=== PATIENT | female | born 1995 | race Caucasian/White ===

== ENCOUNTER 2020-12-20 14:00 | Outpatient (CLI) | payer OTHER ==
[2020-12-20 17:36] VITALS: BP 124/72; PULSE 72; RESP 18; TEMP 98
--- NOTE | 2020-12-28 07:56 | P.MSEPDOC ---
Presenting Problems - Arrival Data Date of Arrival on Unit: 12/20/20 Time of Arrival on Unit: 14:00 Mode of Transport: Stretcher - Complaint OB-Reason for Admission/Chief Complaint: Pain Comment: R/O PREG COMPLIICATIONS. C/O PAIN FROM UMBILICUS TO THROAT. Medical History - Information : 1 Para: 0 Term: 0 : 0 Abortions: Spontaneous or Elective: 0 Number of Living Children: 0 - Gestational Age Gestational Age by RA (wks/days): 32 Weeks and 4 Days - History Comment: NONE Review of Systems - Review of Systems Constitutional: No problems Breast: No problems ENT: No problems Cardiovascular: No problems Respiratory: No problems Gastrointestinal: No problems Genitourinary: No problems Musculoskeletal: No problems Neurological: No problems Skin: No problems Vital Signs - Temperature Temperature: 98.0 F Temperature Source: Oral - Pulse Right Brachial Pulse Rate: 72 Pulse Assessment Method: Automatic Cuff - Respirations Respiratory Rate: 18 Oxygen Delivery Method: Room Air O2 Sat by Pulse Oximetry: 100 - Blood Pressure Right Arm Blood Pressure: 124/72 Blood Pressure Mean: 89 Blood Pressure Source: Automatic Cuff Medical Screen Scoring (Pre) - Cervical Exam Dilation: 0 cm = 0 Effacement: More than 50% = 2 Membranes: Intact - Uterine Contractions Frequency: < 36 weeks = 6 Duration: N/A Intensity: N/A - Maternal Vital Signs Maternal Temperature: N/A Maternal Blood Pressure: N/A Signs of Preeclampsia: Headache = 1 Maternal Respirations: N/A - Maternal Trauma Maternal Trauma: N/A - Assessment - Baby A Baseline FHR: 135 Heart Rate - NICHD Category: Category I (Normal) = 0 NST: Reactive Position: N/A Station: N/A - Total Score - Baby A Total Score - Baby A: 9 - Total Score - Baby B Total Score - Baby B: 9 - Total Score - Baby C Total Score - Baby C: 9 - Level of Risk - Baby A Level of Risk - Baby A: Medium (6-9) - Level of Risk - Baby B Level of Risk - Baby B: Medium (6-9) - Level of Risk - Baby C Level of Risk - Baby C: Medium (6-9) Physician Notification (Pre) - Physician Notified Physician Notified Date: 12/20/20 Physician Notified Time: 16:20 New Order Received: Yes - Notification Comment Comment: DISCH HOME. INCREASE FLUIDS. DECREASE ACIDIC FOODS,. PELVIC REST. REST TONIGHT. KEEP SCHED APPT FOR Saturday12/26/20 Disposition - Disposition OB Disposition: Physician follow up in office, Discharge to home Discharge Date: 12/20/20 Discharge Time: 16:50 I agree with the RN Medical Screening Exam: Yes Case reviewed; plan agreed upon as documented in EMR&OBIX.: Yes Comments: Patient was needed see nor examined by me Diagnosis: FALSE LABOR BEFORE 37 COMPLETED WEEKS OF GEST, THIRD TRI
== END 2020-12-20 16:10 | disposition home or self-care (01) ==
LOC: FBPOP 14:00
PROVIDERS: ATTEND Obstetrics & Gynecology
DX: O47.03 False labor before 37 completed weeks of gestation, third trimester (principal); Z3A.32 32 weeks gestation of pregnancy
CPT/HCPCS: 59025; 96360; 96361; 84112; G0463; 96365; 96367; 99213; 99214

== ENCOUNTER 2021-02-15 14:00 | Inpatient (IN) | payer OTHER ==
[2021-02-15] MEDS: miSOPROStoL 25 MCG TAB VAGINAL PRN ×2 (15:23→18:12)
--- NOTE | 2021-02-15 15:39 | P.HPOB ---
History of Present Illness H&P Date: 02/15/21 Chief Complaint: Here for induction for postdates This is a 25-year-old white female 1 para 0 EDC 02/10/2021 at 40-5/7 weeks' gestation. Patient presents with an unfavorable cervix for Cytotec induction. Fetus is been active throughout the . She denies vaginal bleeding or fluid leakage. Past medical history significant for exercise-induced asthma, not symptomatic with . Surgical history significant for oral surgery in the past. Current medications baby aspirin daily, vitamin daily. ALLERGIES none known. Family history significant for diabetes, hypertension, stroke, cardiomegaly. Social history patient is single, boyfriend is involved. She works at the [employer]. She denies back oh, alcohol or drug use. history blood type is AB+, rubella status is immune. VDRL testing, urine culture, hepatitis B surface antigen, HIV testing, group B strep cultures all negative. Gonorrhea and chlamydia cultures negative. One-hour Glucola 101. On exam patient is 5 foot 9 inches, 240 pounds, blood pressure 133/75 on admission. There is 2+ peripheral the cervix is posterior, soft, closed, 60-70% effaced, vertex presentation. 25 MCG's of Cytotec is placed posterior to the cervix high in the vaginal vault. heart rate is consistent with reactive NST. Irregular uterine irritability is noted on the monitor. Impression: 40 5/7 weeks intrauterine , here for induction of labor with Cytotec. All signs reassuring. Plan: Continue Cytotec intravaginally every 3 hours for approximately 3 doses, pending clinical progress. Nothing by mouth after midnight. Oxytocin at 0600 hrs. Anticipating normal spontaneous vaginal delivery. Review of Systems Constitutional: Reports as per HPI Past Medical History Past Medical History: Asthma Additional Past Medical History / Comment(s): asthma in childhood, no medications as an adult History of Any Multi-Drug Resistant Organisms: None Reported Additional Past Surgical History / Comment(s): Oral surgery with anesthesia, tolerated well Past Anesthesia/Blood Transfusion Reactions: No Reported Reaction Past Psychological History: No Psychological Hx Reported Smoking Status: Never smoker Past Alcohol Use History: None Reported Past Drug Use History: None Reported - Past Family History Mother Family Medical History: CVA/TIA, Diabetes Mellitus Medications and Allergies Home Medications Medication Instructions Recorded Confirmed Type Aspirin [Adult Low Dose Aspirin EC] 81 mg PO DAILY MDD 81 mg 12/20/20 02/15/21 History Pnv,Calcium 72/Iron/Folic Acid 1 each PO DAILY MDD 1 tab 12/20/20 02/15/21 History [ Plus Tablet] Allergies Allergy/AdvReac Type Severity Reaction Status Date / Time No Known Allergies Allergy Verified 12/20/20 17:21 Exam Vital Signs Temp Pulse Resp BP Pulse Ox 02/15/21 14:10 97.9 F 117 H 18 133/75 98 Intake and Output 02/15/21 02/15/21 02/15/21 06:59 14:59 22:59 Other: Weight 108.862 kg See dictation under HPI please Assessment and Plan Assessment: 40-5/7 weeks intrauterine , here for Cytotec induction. All signs reassuring. Plan: Cytotec 25 MCG's intravaginally every 3 hours times approximately 3 doses pending clinical progress. Nothing by mouth after midnight. Begin oxytocin at 0600 hrs., anticipating normal spontaneous vaginal delivery. Time with Patient: Less than 30
[2021-02-15 15:52] LABS: Basophils % (A) 0 %; Eosinophils # (A) 0.1 k/uL (0-0.7); Eosinophils % (A) 1 %; HCT 39.5 % (34.0-46.0); HGB 13.7 gm/dL (11.4-16.0); Lymphocytes # (A) 1.4 k/uL (1.0-4.8); Lymphocytes % (A) 12 %; MCH 30.5 pg (25.0-35.0); MCHC 34.6 g/dL (31.0-37.0); MCV 88.1 fL (80.0-100.0); Mean Platelet Volume 7.9; Monocytes # (A) 0.5 k/uL (0-1.0); Monocytes % (A) 5 %; Neutrophils # (A) 9.4 k/uL (1.3-7.7); Neutrophils % (A) 81 %; Platelet Count 216 k/uL (150-450); RBC 4.49 m/uL (3.80-5.40); RDW 13.3 % (11.5-15.5); WBC 11.7 k/uL (3.8-10.6)
[2021-02-15] MEDS ORDERED: CARBOPROST TROMETHAMINE 250 MCG/ML 1 ML AMP IM PRN (22:25)
[2021-02-15] MEDS ORDERED: LIDOCAINE 0.5% (PF) 5 MG/ML (50 ML SDV) SQ PRN (22:25)
[2021-02-15] MEDS ORDERED: OXYTOCIN 10 UNIT/ML 1 ML VIAL IM PRN (22:25)
[2021-02-15] MEDS ORDERED: METHYLERGONOVINE 0.2 MG/ML 1 ML AMP IM PRN (22:25)
[2021-02-15] MEDS ORDERED: TERBUTALINE 1 MG/ML VIAL SQ PRN (22:25)
[2021-02-15] MEDS: BUTORPHANOL 1 MG/ML 1 ML VIAL IV PRN (22:32)
[2021-02-15] MEDS: LACTATED RINGERS 1,000 ML IV SCH (22:37)
[2021-02-16] MEDS: BUTORPHANOL 1 MG/ML 1 ML VIAL IV PRN (01:28)
[2021-02-16] MEDS: LACTATED RINGERS 1,000 ML IV SCH ×2 (03:30→06:13)
[2021-02-16] MEDS ORDERED: ROPIVACAINE 100 MG, fentaNYL (PF). 200 MCG in SODIUM CHLORIDE 0.9% 76 ML EPIDURAL ONE (03:30)
[2021-02-16] MEDS ORDERED: OXYTOCIN 30 UNITS/500 ML NS 30 UNIT in SALINE 1 500ML.BAG IV SCH (08:00)
[2021-02-16] MEDS ORDERED: diphenhydrAMINE 50 MG/ML 1 ML VIAL IVP PRN ×2 (12:57)
[2021-02-16] MEDS ORDERED: LANOLIN CREAM 5 GM TUBE TOPICAL PRN (12:57)
[2021-02-16] MEDS ORDERED: SIMETHICONE 80 MG CHEWABLE PO PRN (12:57)
[2021-02-16] MEDS ORDERED: diphenhydrAMINE 25 MG CAP PO PRN (12:57)
[2021-02-16] MEDS ORDERED: diphenhydrAMINE 50 MG CAP PO PRN (12:57)
[2021-02-16] MEDS ORDERED: BENZOCAINE/MENTHOL SPRAY 1 GM/SPRAY AEROSOL TOPICAL PRN (12:57)
[2021-02-16] MEDS ORDERED: diphenhydrAMINE ELIXIR 25 MG/10 ML CUP PO PRN (12:57)
[2021-02-16] MEDS ORDERED: ZOLPIDEM 5 MG TAB PO PRN (12:57)
[2021-02-16] MEDS ORDERED: HYDROCORTISONE 2.5% RECTAL CREAM 30 GM TUBE RECTAL PRN (12:57)
--- NOTE | 2021-02-16 12:57 | P.PROBDLV ---
Vaginal Delivery Note - . Vaginal Delivery Note: This is a 25-year-old white female 1 para 0 EDC 02/10/2021 at 40-5/7 weeks' gestation. Patient presented last night for Cytotec induction for unfavorable cervix and post dates . Group B strep cultures negative. Blood type A+. Rubella status immune. Please see dictated history and physical for details. Cytotec 25 MCG's was placed intravaginally 2. Patient progressed into early labor through the night. Spontaneous amniorrhexis revealed meconium-stained fluid, light period in the morning, oxytocin augmentation was started. After her epidural per were a few episodes of questionable heart rate, this was resolved with oxygen administration, increase fluids, and maternal position changes. Patient became completely dilated and began the second stage of labor at that time. With excellent maternal expulsive efforts the infant's head ultimately crowned on the perineal body. The perineum was prepped and draped in usual sterile fashion. Infant's head delivered occiput anterior and she restituted accordingly. The right or anterior shoulder was gently and easily delivered from underneath the pubic symphysis at which time the oropharynx, nasopharynx, and external nares were all bulb suction. Patient was officially delivered of a liveborn female infant at 1241 hours. Nuchal cord was doubly clamped and ligated, she was handed to waiting marine equipment research engineer in attendance for evaluation where scores of 8 and 9 at one and 5 minutes respectively were given. Placenta delivered spontaneously, it was meconium-stained, otherwise intact with trivascular cord at 1244 hours. Uterus is then massaged. Careful inspection of cervix, vagina, perineum, perirectal, and. Periurethral areas revealed a small first-degree perineal laceration easily repaired with a single qxvcoe-[id number] suture of 3-0 repeat. 's weight 8 lbs. 14 oz. or 4020 g. All sponge needle and enhancement counts are correct. Total estimated blood loss 200 mL's. Patient and her family are allowed to begin the bonding experience in the LDR.
[2021-02-16] MEDS: IBUPROFEN 600 MG TAB PO SCH ×2 (13:49→19:59)
[2021-02-16] MEDS: ACETAMINOPHEN TAB 325 MG TAB PO PRN ×2 (15:12→21:59)
[2021-02-16] MEDS: SENNOSIDES-DOCUSATE SODIUM 1 EACH TAB PO SCH (19:59)
[2021-02-16 20:45] VITALS: RESP 16
[2021-02-17] MEDS: IBUPROFEN 600 MG TAB PO SCH ×2 (03:38→10:16)
[2021-02-17] MEDS: ACETAMINOPHEN TAB 325 MG TAB PO PRN ×3 (03:54→13:39)
--- NOTE | 2021-02-17 08:01 | P.DS ---
Providers Date of admission: 02/15/21 14:00 Expected date of discharge: 02/17/21 Attending physician: Dhara Alejo Primary care physician: Stated None Hospital Course: This is a 25-year-old white female 1 para 0 EDC 02/10/2021 who presented at 40-5/7 weeks for Cytotec induction. was unremarkable, blood type AB+, group B strep cultures negative, rubella status immune. Please see dictated history and physical for details. Patient was admitted, Cytotec 25 MCG's was placed twice intravaginally. She went into labor through the night. Spontaneous amniorrhexis occurred, light meconium-stained fluid. Internal scalp lead was placed and oxytocin titrated. Patient requested an epidural and this gave her excellent relief. She went on to deliver vaginally a liveborn female infant with scores of 8 and 9 at one and 5 minutes respectively. Infant weighed 4020 g or 8 lbs. 14 oz. There was a small first-degree perineal laceration easily repaired, estimated blood loss 200 mL's. Please see dictated delivery note for details. This morning the patient is doing well. She is voiding, ambulating passing flatus without difficulty. Vital signs are stable and she is afebrile. Fundus is firm and in the midline, symmetric and 18 week size. Extremities are negative for edema. is doing well. Patient is judged to be in very good condition for discharge home. She will follow-up in the office with me in 6 weeks. I have reminded her no intercourse, tampons or douching. She will [id number] Advil or Aleve, or Motrin as needed for pain. She will call with any fevers shakes or chills, foul smelling or copious lochia, with the passage of large blood clots, with any pain not alleviated by Motrin products, or indeed with any concerns. Assessment: Doing well day #1 Patient Condition at Discharge: Good Plan - Discharge Summary Discharge Rx Participant: No New Discharge Prescriptions: No Action Pnv,Calcium 72/Iron/Folic Acid [ Plus Tablet] 1 each PO DAILY MDD 1 tab Aspirin [Adult Low Dose Aspirin EC] 81 mg PO DAILY MDD 81 mg Discharge Medication List Aspirin [Adult Low Dose Aspirin EC] 81 mg PO DAILY MDD 81 mg 12/20/20 [History] Pnv,Calcium 72/Iron/Folic Acid [ Plus Tablet] 1 each PO DAILY MDD 1 tab 12/20/20 [History] Follow up Appointment(s)/Referral(s): Dhraa Alejo MD [STAFF PHYSICIAN] - 6 Weeks Discharge Disposition: HOME SELF-CARE
[2021-02-17] MEDS: SENNOSIDES-DOCUSATE SODIUM 1 EACH TAB PO SCH (08:37)
[2021-02-17 11:13] VITALS: BP 99/67; PULSE 91; TEMP 98.3
== END 2021-02-17 15:50 | disposition home or self-care (01) | DRG 807 ==
LOC: 4FBP 14:00
PROVIDERS: ADMIT Obstetrics & Gynecology; ATTEND Obstetrics & Gynecology
PROC: 0HQ9XZZ Repair Perineum Skin, External Approach (ICD-10-PCS; principal; 2021-02-15)
PROC: 00HU33Z Insertion of Infusion Device into Spinal Canal, Percutaneous Approach (ICD-10-PCS; principal; 2021-02-15)
PROC: 10E0XZZ Delivery of Products of Conception, External Approach (ICD-10-PCS; principal; 2021-02-15)
PROC: 3E0R3NZ Introduction of Analgesics, Hypnotics, Sedatives into Spinal Canal, Percutaneous Approach (ICD-10-PCS; principal; 2021-02-15)
DX: O48.0 Post-term pregnancy (principal); Z37.0 Single live birth; O70.0 First degree perineal laceration during delivery; O77.0 Labor and delivery complicated by meconium in amniotic fluid; O99.52 Diseases of the respiratory system complicating childbirth; J45.909 Unspecified asthma, uncomplicated; Z3A.40 40 weeks gestation of pregnancy; Z79.82 Long term (current) use of aspirin; Z82.3 Family history of stroke; Z82.49 Family history of ischemic heart disease and other diseases of the circulatory system; Z83.3 Family history of diabetes mellitus
CPT/HCPCS: 85025; 86850; 86900; 86901

== ENCOUNTER 2023-04-06 12:25 | Outpatient (CLI) | payer OTHER ==
[2023-04-06 13:31] LABS: Appearance,Urine Cloudy (Clear); Bacteria,Urine Moderate /hpf; Bilirubin,Urine Negative (Negative); Blood,Urine Negative (Negative); Color,Urine Yellow; Glucose,Urine (UA) Negative (Negative); Ketones,Urine 1+ (Negative); Leukocyte Esterase,Urine Large (Negative); Mucus,Urine Moderate /hpf; Nitrite,Urine Negative (Negative); PH, Urine 7.5 (5.0-8.0); Protein,Urine 1+ (Negative); RBC,Urine 2 /hpf (0-5); Specific Gravity,Urine 1.031 (1.001-1.035); Squamous Epithelial Cell,Urine 46 /hpf (0-4); Urobilinogen,Urine <2.0 mg/dL (<2.0); WBC,Urine 9 /hpf (0-5)
[2023-04-06 14:26] VITALS: BP 116/62; PULSE 145; RESP 16; TEMP 98.1
--- NOTE | 2023-05-09 19:07 | P.MSEPDOC ---
Presenting Problems - Arrival Data Date of Arrival on Unit: 04/06/23 Time of Arrival on Unit: 12:25 Mode of Transport: Ambulatory - Complaint OB-Reason for Admission/Chief Complaint: Other Comment: Pt presents to [place] with complaints of. abdominal cramping. Pt appears very tearful and. reports feeling "unwell and overwhelmed." Medical History - Information : 2 Para: 1 Term: 1 : 0 Abortions: Spontaneous or Elective: 0 Number of Living Children: 1 - Gestational Age Gestational Age by RA (wks/days): 26 Weeks and 2 Days Review of Systems - Review of Systems Constitutional: No problems Breast: No problems ENT: No problems Cardiovascular: No problems Respiratory: No problems Gastrointestinal: No problems Genitourinary: Increased frequency Musculoskeletal: No problems Neurological: No problems Skin: No problems Vital Signs - Temperature Temperature: 98.1 F Temperature Source: Oral - Pulse Right Brachial Pulse Rate: 145 Pulse Assessment Method: Automatic Cuff - Respirations Respiratory Rate: 16 Oxygen Delivery Method: Room Air - Blood Pressure Right Arm Blood Pressure: 116/62 Blood Pressure Mean: 80 Blood Pressure Source: Automatic Cuff Medical Screen Scoring - Assessment - Baby A Baseline FHR: 130 Heart Rate - NICHD Category: Category I (Normal) NST: Reactive Physician Notification - Physician Notified Physician Notified Date: 04/06/23 Physician Notified Time: 13:46 Physician: Marie Thibodeaux New Order Received: Yes - Notification Comment Comment: Dr. Thibodeaux given report on pt. Pt c/o. VS. readback to Cat 1 FHTs noted. No contractions per. toco. Pt appears very anxious and tearful and reports. little sleep. Pt complaining of urinary symptoms as. well. Orders recieved to send urine for culture. Dr. key [place] to [facility] outpatient pharmacy. To. educate pt she may take OTC stool softeners, and may. take tylenol PM or benadryl to help with sleep. Maternal Triage Index - Non-Urgent/Priority 4 Non-Urgent Priority 4: Yes Criteria Met for Priority 4: Pt presents to [place] with complaints of. abdominal cramping. Pt appears very tearful and. reports feeling "unwell and overwhelmed." Pt reports urinary symptoms. Disposition - Disposition OB Disposition: Discharge to home Discharge Date: 04/06/23 Discharge Time: 14:16 I agree with the RN Medical Screening Exam: Yes Case reviewed; plan agreed upon as documented in EMR&OBIX.: Yes Diagnosis: RELATED CONDITIONS, UNSPECIFIED, SECOND TRIMESTER
== END 2023-04-06 14:16 | disposition home or self-care (01) ==
LOC: FBPOP 12:25
PROVIDERS: ATTEND Obstetrics & Gynecology Obstetrics
DX: O26.892 Other specified pregnancy related conditions, second trimester (principal); Z3A.26 26 weeks gestation of pregnancy
CPT/HCPCS: 81001; 87086; 87077; 87186; G0463; 99213

== ENCOUNTER 2023-07-16 06:00 | Inpatient (IN) | payer OTHER ==
[2023-07-16] MEDS ORDERED: miSOPROStoL 200 MCG TAB PO PRN (06:25)
[2023-07-16] MEDS ORDERED: METHYLERGONOVINE 0.2 MG/ML 1 ML AMP IM PRN (06:25)
[2023-07-16] MEDS ORDERED: CARBOPROST TROMETHAMINE 250 MCG/ML 1 ML AMP IM PRN (06:25)
[2023-07-16] MEDS ORDERED: LIDOCAINE 0.5% (PF) 5 MG/ML (50 ML SDV) SQ PRN (06:25)
[2023-07-16] MEDS ORDERED: TERBUTALINE 1 MG/ML VIAL SQ PRN (06:25)
[2023-07-16] MEDS ORDERED: OXYTOCIN 10 UNIT/ML 1 ML VIAL IM PRN (06:25)
[2023-07-16] MEDS ORDERED: TRANEXAMIC 1,000 MG/100ML-NACL 1,000 MG in EMPTY BAG 1 BAG IV PRN (06:25)
[2023-07-16] MEDS ORDERED: OXYTOCIN 30 UNITS/500 ML NS 30 UNIT in SALINE 1 500ML.BAG IV SCH ×2 (06:30→15:15)
[2023-07-16] MEDS: LACTATED RINGERS 1,000 ML IV SCH ×3 (06:38→14:04)
[2023-07-16 06:39] LABS: Basophils % (A) 0 %; Eosinophils # (A) 0.1 k/uL (0-0.7); Eosinophils % (A) 1 %; HCT 40.1 % (34.0-46.0); HGB 13.7 gm/dL (11.4-16.0); Lymphocytes # (A) 2.3 k/uL (1.0-4.8); Lymphocytes % (A) 18 %; MCH 30.1 pg (25.0-35.0); MCHC 34.1 g/dL (31.0-37.0); MCV 88.3 fL (80.0-100.0); Mean Platelet Volume 8.4; Monocytes # (A) 0.5 k/uL (0-1.0); Monocytes % (A) 4 %; Neutrophils # (A) 9.4 k/uL (1.3-7.7); Neutrophils % (A) 74 %; Platelet Count 202 k/uL (150-450); RBC 4.54 m/uL (3.80-5.40); RDW 14.2 % (11.5-15.5); WBC 12.6 k/uL (3.8-10.6)
[2023-07-16 06:56] VITALS: RESP 16
--- NOTE | 2023-07-16 09:09 | P.HPOB ---
History of Present Illness H&P Date: 07/16/23 Chief Complaint: Induction of labor for post-dates Ms. Cervantes is a 28 year old at 40 weeks and 5 days with EDC of 07/11/2023 (by LMP consistent with 11 week US) who presents for medical induction of labor for post-dates . The has been uncomplicated. At 33 weeks, the fetus was estimated to be in the 80%ile for growth at that gestational age. Obstetric history: 1 full term vaginal delivery in 2020 for female weighing 8 pounds and 14 ounces. Maternal work-up: blood type AB positive, antibody negative, rubella immune, VDRL non-reactive, HBsAg negative, HIV negative, gonorrhea negative, chlamydia negative, 1 hour GTT 97, GBS negative. TDap administered 05/09/2023. Past medical history: None Past surgical history: oral surgery Medications: vitamins, baby aspirin Past Medical History Past Medical History: Asthma Additional Past Medical History / Comment(s): asthma in childhood, no medications as an adult History of Any Multi-Drug Resistant Organisms: None Reported Additional Past Surgical History / Comment(s): Oral surgery with anesthesia, tolerated well Past Anesthesia/Blood Transfusion Reactions: No Reported Reaction Past Psychological History: No Psychological Hx Reported Smoking Status: Never smoker Past Alcohol Use History: None Reported Past Drug Use History: None Reported - Past Family History Mother Family Medical History: CVA/TIA, Diabetes Mellitus Medications and Allergies Home Medications Medication Instructions Recorded Confirmed Type Aspirin [Adult Low Dose Aspirin EC] 81 mg PO DAILY MDD 81 mg 12/20/20 07/16/23 History Vit No.180/Iron/Folic 1 each PO DAILY MDD 1 tab 12/20/20 07/16/23 History [ Plus Tablet] Allergies Allergy/AdvReac Type Severity Reaction Status Date / Time No Known Allergies Allergy Verified 07/16/23 06:22 Exam Vital Signs Temp Pulse Resp BP Pulse Ox 07/16/23 06:51 98.8 F 99 16 130/70 99 Intake and Output 07/15/23 07/16/23 07/16/23 22:59 06:59 14:59 Other: Weight 110.223 kg June physical exam is performed. This is a healthy-appearing in no apparent distress. Her breathing is non-labored. Abdomen is gravid and non- tender. Cervical exam is 2 cm, 50% effaced, -2 station. AROM is performed revealing clear amniotic fluid. Extremities are non-tender and non- edematous. heart tones are category 1 with Pitocin at 4. Tocometer is grafting contractions every 2-3 minutes. Results Result Diagrams: 07/16/23 06:30 Abnormal Lab Results - Last 24 Hours (Table) 07/16/23 Range/Units 06:30 WBC 12.6 H (3.8-10.6) k/uL Neutrophils # 9.4 H (1.3-7.7) k/uL Assessment and Plan Assessment: 28 year old at 40 weeks and 5 days presenting for medical induction of labor for post-dates Plan: Admit, NPO, mIVF, IV nubain prn > epidural prn, pitocin per protocol. Continuous EFM and tocometer, close monitoring of patient. Time with Patient: Less than 30
[2023-07-16] MEDS ORDERED: NALBUPHINE 10 MG/ML (10 ML MDV) IV PRN (10:42)
[2023-07-16] MEDS ORDERED: SODIUM CHLORIDE 0.9% 250 ML BAG ONE (11:49)
[2023-07-16] MEDS ORDERED: fentaNYL (PF) 50 MCG/ML 5 ML AMP ONE (11:49)
[2023-07-16] MEDS ORDERED: ROPIVACAINE 5 MG/ML 30 ML VIAL ONE (11:49)
[2023-07-16] MEDS ORDERED: LANOLIN CREAM 5 GM TUBE TOPICAL PRN (15:10)
[2023-07-16] MEDS ORDERED: IBUPROFEN 600 MG TAB PO PRN (15:10)
[2023-07-16] MEDS ORDERED: ZOLPIDEM 5 MG TAB PO PRN (15:10)
[2023-07-16] MEDS ORDERED: diphenhydrAMINE 25 MG CAP PO PRN (15:10)
[2023-07-16] MEDS ORDERED: diphenhydrAMINE 50 MG/ML 1 ML VIAL IVP PRN ×2 (15:10)
[2023-07-16] MEDS ORDERED: diphenhydrAMINE 50 MG CAP PO PRN (15:10)
[2023-07-16] MEDS ORDERED: HYDROCORTISONE 2.5% RECTAL CREAM 30 GM TUBE RECTAL PRN (15:10)
[2023-07-16] MEDS ORDERED: BENZOCAINE/MENTHOL SPRAY 1 GM/SPRAY AEROSOL TOPICAL PRN (15:10)
[2023-07-16] MEDS ORDERED: SIMETHICONE 80 MG CHEWABLE PO PRN (15:10)
--- NOTE | 2023-07-16 15:10 | P.PROBDLV ---
Vaginal Delivery Note - . Vaginal Delivery Note: DATE OF SERVICE: 07/16/2023 PROCEDURE: Normal Vaginal Delivery ATTENDING: Dr. Dian Trujillo MD ESTIMATED BLOOD LOSS: 200 mL FINDINGS: VMI, Apgars 8/9. Weight 9 pounds and 2 ounces (4125 grams) PROCEDURE: Mrs. Cervantes is a 28 year old at 40 weeks and 5 days gestation presenting to labor and delivery for medical induction of labor for post-dates . The has been otherwise uncomplicated. For further details, please review the admitting H&P. Pitocin was titrated per hospital protocol. AROM was undertaken with clear fluid noted at 822 with clear amniotic fluid noted. The patient was completely dilated at 1440. She pushed effectively with and head was delivered over intact perineum followed by shoulders and body. heart tones were Category I and II throughout the first and second stage of labor. A viable male infant was delivered at 1451. The was placed on the maternal abdomen and bulb suctioned. Cord was clamped and cut after a 30-second delay. The infant was handed off to the pediatric team. Placenta was delivered whole with gentle cord traction at 1452. Oxytocin was started to facilitate uterine tone. Uterine fundus was found to be firm and below the umbilicus upon fundal massage. Thorough examination of the cervix, vagina, periurethral area, and perineum revealed no lacerations. The patient is stable and allowed to begin the bonding process. Patient stable .
[2023-07-16] MEDS: ACETAMINOPHEN TAB 325 MG TAB PO PRN (19:38)
[2023-07-16] MEDS: SENNOSIDES-DOCUSATE SODIUM 1 EACH TAB PO SCH (19:39)
[2023-07-17] MEDS: ACETAMINOPHEN TAB 325 MG TAB PO PRN (06:38)
[2023-07-17 07:23] LABS: Basophils % (A) 0 %; Eosinophils # (A) 0.1 k/uL (0-0.7); Eosinophils % (A) 1 %; HGB 11.5 gm/dL (11.4-16.0); Lymphocytes % (A) 16 %; MCH 30.2 pg (25.0-35.0); MCHC 33.7 g/dL (31.0-37.0); MCV 89.7 fL (80.0-100.0); Mean Platelet Volume 9.4; Monocytes # (A) 0.7 k/uL (0-1.0); Monocytes % (A) 6 %; Neutrophils # (A) 9.4 k/uL (1.3-7.7); Neutrophils % (A) 75 %; Platelet Count 135 k/uL (150-450); RBC 3.79 m/uL (3.80-5.40); RDW 14.6 % (11.5-15.5); WBC 12.6 k/uL (3.8-10.6)
--- NOTE | 2023-07-17 08:46 | P.DS ---
Providers Date of admission: 07/16/23 06:00 Expected date of discharge: 07/17/23 Attending physician: Dian Trujillo MD Primary care physician: Stated None - Discharge Diagnosis(es) (1) Normal spontaneous vaginal delivery Current Visit: Yes Status: Acute Hospital Course: The patient is a 28-year-old 2 para 1001 admitted at 40-5/7 weeks by cayla blanca. She is admitted for postdates induction of labor with all signs reassuring. On labor and delivery, she had Pitocin started followed by artificial rupture of membranes for clear fluid. She made progress to the active phase of labor had an epidural catheter placed for analgesia. She then progressed to complete and pushed to a normal spontaneous vaginal delivery of a viable 9 lbs. 2 oz. baby boy with Apgars of 8 at 1 minute and 9 at 5 minutes. Her course was unremarkable vital signs being stable and her temperature was afebrile throughout. She was deemed stable for discharge on day #1 was discharged home to follow-up in the office in 6 weeks' time routinely. Discharge instructions included calling for any significantly increased bleeding or foul-smelling lochia, significantly increased fever abdominal pain, perineal complaints, breast complaints, or anything also concerned her. She is additionally instructed to have nothing in the vagina for at least 6 weeks time to include intercourse. She understood her instructions and agrees to follow up as noted above. Maternal blood type is AB+ and rubella status is immune. Procedures: #1. Pitocin induction #2. Artificial rupture of membranes #3. Epidural analgesia #4. Normal spontaneous vaginal delivery Patient Condition at Discharge: Stable Plan - Discharge Summary New Discharge Prescriptions: No Action Vit No.180/Iron/Folic [ Plus Tablet] 1 each PO DAILY MDD 1 tab Aspirin [Adult Low Dose Aspirin EC] 81 mg PO DAILY MDD 81 mg Discharge Medication List Aspirin [Adult Low Dose Aspirin EC] 81 mg PO DAILY MDD 81 mg 12/20/20 [History] Vit No.180/Iron/Folic [ Plus Tablet] 1 each PO DAILY MDD 1 tab 12/20/20 [History] Follow up Appointment(s)/Referral(s): Dian Trujillo MD [STAFF PHYSICIAN] - 6 Weeks Discharge Disposition: HOME SELF-CARE
[2023-07-17 09:33] VITALS: BP 121/76; PULSE 76; TEMP 98.2
[2023-07-17] MEDS: SENNOSIDES-DOCUSATE SODIUM 1 EACH TAB PO SCH ×2 (09:34→12:36)
== END 2023-07-17 16:05 | disposition home or self-care (01) | DRG 560 ==
LOC: 4FBP 06:00
PROVIDERS: ADMIT Obstetrics & Gynecology; ATTEND Obstetrics & Gynecology
PROC: 10E0XZZ Delivery of Products of Conception, External Approach (ICD-10-PCS; principal; 2023-07-16)
PROC: 10907ZC Drainage of Amniotic Fluid, Therapeutic from Products of Conception, Via Natural or Artificial Opening (ICD-10-PCS; 2023-07-16)
PROC: 3E033VJ Introduction of Other Hormone into Peripheral Vein, Percutaneous Approach (ICD-10-PCS; 2023-07-16)
DX: O48.0 Post-term pregnancy (principal); Z37.0 Single live birth; Z3A.40 40 weeks gestation of pregnancy; Z79.82 Long term (current) use of aspirin; Z83.3 Family history of diabetes mellitus
CPT/HCPCS: 85025; 86850; 86900; 86901

== ENCOUNTER 2024-09-18 20:22 | Emergency (ER) | payer OTHER ==
[2024-09-18 20:28] VITALS: RESP 18; TEMP 97.7
--- NOTE | 2024-09-18 20:56 | ED ---
General Adult HPI - General Chief complaint: Abdominal Pain Stated complaint: Abd Pain,Spotting Time Seen by Provider: 09/18/24 20:40 Source: patient, RN notes reviewed Mode of arrival: ambulatory - History of Present Illness Initial comments: This is a 29-year-old female [id number] presenting to the emergency department chief complaint of pelvic pain and vaginal spotting that occurred earlier today. Patient states that she had her menstrual cycle approximately 2 weeks ago and today she began to experience mild spotting/bleeding after wiping and using the restroom. She denies rectal bleeding or pain. She denies dysuria, increase in urinary frequency or urgency or odor to urine. Patient denies current use of contraceptives. She states that she had a history of ovarian cyst wall she was . She denies previous surgical abdominal history. - Related Data Home Medications Medication Instructions Recorded Confirmed Aspirin [Adult Low Dose Aspirin EC] 81 mg PO DAILY MDD 81 mg 12/20/20 07/16/23 Vit No.180/Iron/Folic 1 each PO DAILY MDD 1 tab 12/20/20 07/16/23 [ Plus Tablet] Allergies Allergy/AdvReac Type Severity Reaction Status Date / Time No Known Allergies Allergy Verified 09/18/24 20:28 Review of Systems ROS Statement: Those systems with pertinent positive or pertinent negative responses have been documented in the HPI. ROS Other: All systems not noted in ROS Statement are negative. Past Medical History Past Medical History: Asthma Additional Past Medical History / Comment(s): asthma in childhood, no medications as an adult History of Any Multi-Drug Resistant Organisms: None Reported Additional Past Surgical History / Comment(s): Oral surgery with anesthesia, tolerated well Past Anesthesia/Blood Transfusion Reactions: No Reported Reaction Past Psychological History: No Psychological Hx Reported Smoking Status: Never smoker Past Alcohol Use History: None Reported Past Drug Use History: None Reported - Past Family History Mother Family Medical History: CVA/TIA, Diabetes Mellitus General Exam General appearance: alert, in no apparent distress Eye exam: Present: normal appearance, PERRL, EOMI. Absent: scleral icterus, conjunctival injection, periorbital swelling Neck exam: Present: normal inspection. Absent: tenderness, meningismus, lymphadenopathy Respiratory exam: Present: normal lung sounds bilaterally. Absent: respiratory distress, wheezes, rales, rhonchi, stridor Cardiovascular Exam: Present: regular rate, normal rhythm, normal heart sounds. Absent: systolic murmur, diastolic murmur, rubs, gallop, clicks GI/Abdominal exam: Present: soft, tenderness (right lower pelvic pain), normal bowel sounds. Absent: distended, guarding, rebound, rigid Extremities exam: Present: normal inspection, full ROM, normal capillary refill. Absent: tenderness, pedal edema, joint swelling, calf tenderness Back exam: Present: normal inspection Skin exam: Present: warm, dry, intact, normal color. Absent: rash Course Vital Signs 09/18/24 09/19/24 20:26 00:25 Temperature 97.7 F Pulse Rate 76 84 Respiratory 18 18 Rate Blood Pressure 117/75 140/93 O2 Sat by Pulse 100 100 Oximetry Medical Decision Making - Medical Decision Making Was pt. sent in by a medical professional or institution ([facility], [facility] [facility] [employer], urgent care, hospital, or prison...) When possible be specific @ -No Did you speak to anyone other than the patient for history (EMS, parent, family, police, friend...)? What history was obtained from this source @ -No Did you review nursing and triage notes (agree or disagree)? Why? @ -I reviewed and agree with nursing and triage notes Were old charts reviewed (outside hosp., previous admission, EMS record, old EKG, old radiological studies, urgent care reports/EKG's, prison records)? Report findings @ -No old charts were reviewed Differential Diagnosis (chest pain, altered mental status, abdominal pain women, abdominal pain men, vaginal bleeding, weakness, fever, dyspnea, syncope, headache, dizziness, GI bleed, back pain, seizure, CVA, palpatations, mental health, musculoskeletal)? @ -Differential Abdominal Pain Women: Appendicitis, Cholecystitis, diverticulosis, ischemic bowel, pancreatitis, hepatitis, UTI, gastroenteritis, AAA, incarcerated hernia, bowel obstruction, constipation, inflammatory bowel, hepatitis, peptic ulcer disease, splenic infarction, perforated viscus, vulvitis, ovarian torsion, PID, kidney stone, placenta abruption, this is not meant to be an all-inclusive list EKG interpreted by me (3pts min.). @ -none X-rays interpreted by me (1pt min.). @ -None done CT interpreted by me (1pt min.). @ -None done U/S interpreted by me (1pt. min.). @ -Transvaginal ultrasound reveals no acute process with appropriate arterial and venous waveforms to both ovaries What testing was considered but not performed or refused? (CT, X-rays, U/S, labs)? Why? @ -None What meds were considered but not given or refused? Why? @ -None Did you discuss the management of the patient with other professionals (professionals i.e. Dr., PA, [employer], lab, RT, psych nurse, social media assistant, marriage counselor, teacher, affirmative action officer, rn case manager)? Give summary @ -No Was smoking cessation discussed for >3mins.? @ -No Was critical care preformed (if so, how long)? @ -No Were there social determinants of health that impacted care today? How? (Homelessness, low income, unemployed, alcoholism, drug addiction, transportation, low edu. Level, literacy, decrease access to med. care, intermediate, rehab)? @ -No Was there de-escalation of care discussed even if they declined (Discuss DNR or withdrawal of care, Hospice)? DNR status @ -No What co-morbidities impacted this encounter? (DM, HTN, Smoking, COPD, CAD, Cancer, CVA, ARF, Chemo, Hep., AIDS, mental health diagnosis, sleep apnea, mo rbid obesity)? @ -None Was patient admitted / discharged? Hospital course, mention meds given and [place], prescriptions, significant lab abnormalities, going to OR and other pertinent info. @ -Discharge. 29-year-old female presenting with right lower abdominal pain. Patient was originally evaluated in triage is right lower quadrant abdominal pain. On my evaluation the patient is noted to have right lower pelvic pain with no right lower quadrant abdominal pain. Her vitals are stable. She is provided with dose of Tylenol and zofran pending laboratory results and ultrasound. She is agree with this plan. Laboratory results reveal mild leukocytosis 11.6, CMP grossly unremarkable, lipase not elevated, urinalysis negative hCG, no signs of infection. Ultrasound unremarkable for evidence of torsion or ovarian cyst. Discussed with patient at bedside symptoms are likely secondary to beginning of menses and she is stable for discharge. Recommend she continue Tylenol and/or Motrin as needed and follow-up with her primary care provider. All questions have been answered at bedside answered return parameters discussed with the patient she is verbalized understanding. Case notes with my attending Dr. Causey Undiagnosed new problem with uncertain prognosis? @ -No Drug Therapy requiring intensive monitoring for toxicity (Heparin, Nitro, Insulin, Cardizem)? @ -No Were any procedures done? @ -No Diagnosis/symptom? @ -pelvic pain Acute, or Chronic, or Acute on Chronic? @ -acute Uncomplicated (without systemic symptoms) or Complicated (systemic symptoms)? @ -uncomplicated Side effects of treatment? @ -No Exacerbation, Progression, or Severe Exacerbation? @ -No Poses a threat to life or bodily function? How? (Chest pain, [place], [place], pneumonia, PE, COPD, DKA, ARF, appy, cholecystitis, CVA, Diverticulitis, Homicidal, Suicidal, threat to staff... and all critical care pts) @ -No - Lab Data Result diagrams: 09/18/24 22:15 09/18/24 22:15 Lab Results 09/18/24 09/18/24 09/18/24 Range/Units 22:15 22:15 22:15 WBC 11.6 H (3.8-10.6) k/uL RBC 5.11 (3.80-5.40) m/uL Hgb 14.3 (11.4-16.0) gm/dL Hct 44.4 (34.0-46.0) % MCV 87.0 (80.0-100.0) fL MCH 28.1 (25.0-35.0) pg MCHC 32.2 (31.0-37.0) g/dL RDW 12.7 (11.5-15.5) % Plt Count 288 (150-450) k/uL MPV 7.7 Neutrophils % 66 % Lymphocytes % 25 % Monocytes % 6 % Eosinophils % 1 % Basophils % 1 % Neutrophils # 7.6 (1.3-7.7) k/uL Lymphocytes # 3.0 (1.0-4.8) k/uL Monocytes # 0.7 (0-1.0) k/uL Eosinophils # 0.2 (0-0.7) k/uL Basophils # 0.1 (0-0.2) k/uL Sodium (137-145) mmol/L Potassium (3.5-5.1) mmol/L Chloride (98-107) mmol/L Carbon Dioxide (22-30) mmol/L Anion Gap mmol/L BUN (7-17) mg/dL Creatinine (0.52-1.04) mg/dL Est GFR (CKD-EPI)AfAm (>60 ml/min/1.73 sqM) Est GFR (CKD-EPI)NonAf (>60 ml/min/1.73 sqM) Glucose (74-99) mg/dL Calcium (8.4-10.2) mg/dL Total Bilirubin (0.2-1.3) mg/dL AST (14-36) U/L ALT (4-34) U/L Alkaline Phosphatase (38-126) U/L Total Protein (6.3-8.2) g/dL Albumin (3.5-5.0) g/dL Lipase (23-300) U/L Urine Color Yellow Urine Appearance Clear (Clear) Urine pH 5.5 (5.0-8.0) Ur Specific [place] 1.035 (1.001-1.035) Urine Protein Trace H (Negative) Urine Glucose (UA) Negative (Negative) Urine Ketones 2+ H (Negative) Urine Blood Negative (Negative) Urine Nitrite Negative (Negative) Urine Bilirubin Negative (Negative) Urine Urobilinogen 2.0 (<2.0) mg/dL Ur Leukocyte Esterase Negative (Negative) Urine HCG, Qual Not Detected (Not Detectd) 09/18/24 Range/Units 22:15 WBC (3.8-10.6) k/uL RBC (3.80-5.40) m/uL Hgb (11.4-16.0) gm/dL Hct (34.0-46.0) % MCV (80.0-100.0) fL MCH (25.0-35.0) pg MCHC (31.0-37.0) g/dL RDW (11.5-15.5) % Plt Count (150-450) k/uL MPV Neutrophils % % Lymphocytes % % Monocytes % % Eosinophils % % Basophils % % Neutrophils # (1.3-7.7) k/uL Lymphocytes # (1.0-4.8) k/uL Monocytes # (0-1.0) k/uL Eosinophils # (0-0.7) k/uL Basophils # (0-0.2) k/uL Sodium 138 (137-145) mmol/L Potassium 3.9 (3.5-5.1) mmol/L Chloride 107 (98-107) mmol/L Carbon Dioxide 23 (22-30) mmol/L Anion Gap 8 mmol/L BUN 25 H (7-17) mg/dL Creatinine 0.84 (0.52-1.04) mg/dL Est GFR (CKD-EPI)AfAm >90 (>60 ml/min/1.73 sqM) Est GFR (CKD-EPI)NonAf >90 (>60 ml/min/1.73 sqM) Glucose 81 (74-99) mg/dL Calcium 9.5 (8.4-10.2) mg/dL Total Bilirubin 0.6 (0.2-1.3) mg/dL AST 33 (14-36) U/L ALT 20 (4-34) U/L Alkaline Phosphatase 79 (38-126) U/L Total Protein 8.6 H (6.3-8.2) g/dL Albumin 4.9 (3.5-5.0) g/dL Lipase 96 (23-300) U/L Urine Color Urine Appearance (Clear) Urine pH (5.0-8.0) Ur Specific [place] (1.001-1.035) Urine Protein (Negative) Urine Glucose (UA) (Negative) Urine Ketones (Negative) Urine Blood (Negative) Urine Nitrite (Negative) Urine Bilirubin (Negative) Urine Urobilinogen (<2.0) mg/dL Ur Leukocyte Esterase (Negative) Urine HCG, Qual (Not Detectd) Disposition Clinical Impression: Pelvic pain Disposition: HOME SELF-CARE Condition: Good Instructions (If sedation given, give patient instructions): Pelvic Pain in Women (ED) Is patient prescribed a controlled substance at d/c from ED?: No Referrals: Joanna Saldaña MD [Primary Care Provider] - 1-2 days Time of Disposition: 00:24
--- NOTE | 2024-09-18 22:02 | US ---
EXAMINATION TYPE: US transvaginal DATE OF EXAM: 09/18/2024 COMPARISON: NONE CLINICAL INDICATION: Female, 29 years old with history of right lower pelvic pain, r/o torsion; Pt st ates pelvic pain, more on right side TECHNIQUE: Transvaginal (TV). Transvaginal grayscale sonographic images of the pelvis were acquired. Doppler imaging: Color Doppler Images were obtained. Spectral doppler images were obtained. FINDINGS: Date of LMP: 2 weeks ago EXAM MEASUREMENTS: Uterus: 9.7 x 4.8 x 5.4 cm Endometrial Stripe: 1.5 cm Right Ovary: 2.9 x 2.1 x 2.1 cm Left Ovary: 2.5 x 1.9 x 1.6 cm 1. Uterus: Anteverted wnl 2. Endometrium: wnl 3. Right Ovary: wnl 4. Left Ovary: wnl Spectral, color and waveform doppler imaging shows good arterial and venous flow within the ovaries ; there is no evidence for ovarian torsion. 5. Bilateral Adnexa: wnl 6. Posterior cul-de-sac: wnl IMPRESSION: 1. No evidence for acute process. 2. Appropriate arterial and venous spectral waveforms to the ovaries. [facility], , 09/18/2024 10:00 PM
[2024-09-18] MEDS: ACETAMINOPHEN TAB 500 MG TAB PO STA (22:04)
[2024-09-18] MEDS: ONDANSETRON 4 MG/2 ML VIAL IVP STA (22:05)
[2024-09-18 22:50] LABS: Basophils # (A) 0.1 k/uL (0-0.2); Basophils % (A) 1 %; Eosinophils # (A) 0.2 k/uL (0-0.7); Eosinophils % (A) 1 %; HCT 44.4 % (34.0-46.0); HGB 14.3 gm/dL (11.4-16.0); Lymphocytes % (A) 25 %; MCH 28.1 pg (25.0-35.0); MCHC 32.2 g/dL (31.0-37.0); Mean Platelet Volume 7.7; Monocytes # (A) 0.7 k/uL (0-1.0); Monocytes % (A) 6 %; Neutrophils # (A) 7.6 k/uL (1.3-7.7); Neutrophils % (A) 66 %; Platelet Count 288 k/uL (150-450); RBC 5.11 m/uL (3.80-5.40); RDW 12.7 % (11.5-15.5); WBC 11.6 k/uL (3.8-10.6)
[2024-09-18 23:16] LABS: ALT 20 U/L (4-34); AST 33 U/L (14-36); African American GFR (CKD) >90 (>60 ml/min/1.73 sqM); Albumin 4.9 g/dL (3.5-5.0); Alkaline Phosphatase 79 U/L (38-126); Anion Gap 8 mmol/L; Blood Urea Nitrogen 25 mg/dL (7-17); Calcium 9.5 mg/dL (8.4-10.2); Carbon Dioxide 23 mmol/L (22-30); Chloride 107 mmol/L (98-107); Glucose 81 mg/dL (74-99); Lipase 96 U/L (23-300); Non-African American GFR(CKD) >90 (>60 ml/min/1.73 sqM); Potassium 3.9 mmol/L (3.5-5.1); Sodium 138 mmol/L (137-145); Total Bilirubin 0.6 mg/dL (0.2-1.3); Total Protein 8.6 g/dL (6.3-8.2)
[2024-09-18 23:21] LABS: Appearance,Urine Clear (Clear); Bilirubin,Urine Negative (Negative); Blood,Urine Negative (Negative); Color,Urine Yellow; Glucose,Urine (UA) Negative (Negative); Ketones,Urine 2+ (Negative); Leukocyte Esterase,Urine Negative (Negative); Nitrite,Urine Negative (Negative); PH, Urine 5.5 (5.0-8.0); Protein,Urine Trace (Negative); Specific Gravity,Urine 1.035 (1.001-1.035)
[2024-09-19 00:26] VITALS: BP 140/93; PULSE 84
== END 2024-09-19 00:44 | disposition home or self-care (01) ==
LOC: EC 20:22
DX: R10.2 Pelvic and perineal pain (principal); D72.829 Elevated white blood cell count, unspecified
CPT/HCPCS: 36415; 80053; 83690; 85025; 81003; 81025; 93975; 76830; 99284; 96374; J2405

== ENCOUNTER → 2024-10-19 | Outpatient (CLI) | payer OTHER ==
[2024-10-19 15:46] LABS: Basophils # (A) 0.05 X 10*3/uL (0.00-0.10); Basophils % (A) 0.6 %; Eosinophils # (A) 0.11 X 10*3/uL (0.04-0.35); Eosinophils % (A) 1.4 %; HCT 42.1 % (37.2-46.3); HGB 13.8 g/dL (12.0-15.0); Lymphocytes # (A) 1.84 X 10*3/uL (0.90-5.00); Lymphocytes % (A) 23.2 %; MCHC 32.8 g/dL (32.0-37.0); MCV 85.4 FL (80.0-97.0); Mean Platelet Volume 10.6 FL (9.5-12.2); Monocytes # (A) 0.48 X 10*3/uL (0.20-1.00); NRBC Per 100 WBC 0 X 10*3/uL (0.00-0.01); Neutrophils # (A) 5.45 X 10*3/uL (1.80-7.70); Neutrophils % (A) 68.7 %; Platelet Count 274 X 10*3/uL (140-440); RBC 4.93 X 10*6/uL (4.10-5.20); RDW 12.8 % (11.5-14.5); WBC 7.94 X 10*3/uL (4.50-10.00)
== END | disposition home or self-care (01) ==
LOC: LABPAT 10:00
PROVIDERS: ATTEND Obstetrics & Gynecology
DX: Z01.812 Encounter for preprocedural laboratory examination (principal)
CPT/HCPCS: 85025

== ENCOUNTER 2024-10-29 06:07 | Day surgery (SDC) | payer OTHER ==
[2024-10-23 12:07] VITALS: BMI 32.5
[~2024-10-29 06:07] MED LIST: Pre Op ABX Message 1 EACH MISC MISCELLANE ONE
[2024-10-29] MEDS: IV FLUID CONTINUATION 1,000 ML IV ONE (06:36)
[2024-10-29 06:43] VITALS: RESP 16; TEMP 97.6
[2024-10-29] MEDS: LACTATED RINGERS 1,000 ML IV SCH (06:48)
[2024-10-29] MEDS: DEXAMETHASONE SOD PHOSPHATE 4 MG/ML 1 ML VIAL IV ONE (06:50)
[2024-10-29] MEDS: ONDANSETRON 4 MG/2 ML VIAL IVP ONE (06:50)
[2024-10-29] MEDS: MIDAZOLAM 2 MG/2 ML VIAL IV ONE (06:59)
[2024-10-29] MEDS ORDERED: HYDROmorphone 0.5 MG/0.5 ML SYRINGE IVP PRN (07:00)
[2024-10-29] MEDS ORDERED: KETOROLAC 15 MG/ML 1 ML VIAL ONE (07:36)
[2024-10-29] MEDS ORDERED: ROCURONIUM 10 MG/ML (5 ML VIAL) IV ONE (07:36)
[2024-10-29] MEDS ORDERED: diphenhydrAMINE 50 MG/ML 1 ML VIAL ONE (07:36)
[2024-10-29] MEDS ORDERED: HYDROmorphone (PF) 1 MG/ML ONE (07:36)
[2024-10-29] MEDS ORDERED: SUCCINYLCHOLINE CHLORIDE 200 MG/10 ML VIAL IV ONE (07:36)
[2024-10-29] MEDS ORDERED: GLYCOPYRROLATE 0.2 MG/ML 2 ML VIAL ONE (07:36)
[2024-10-29] MEDS ORDERED: LIDOCAINE 1% INJ 10MG/ML (20 ML MDV) ONE (07:36)
[2024-10-29] MEDS ORDERED: fentaNYL (PF) 50 MCG/ML 2 ML AMP ONE (07:36)
[2024-10-29] MEDS ORDERED: NEOSTIGMINE 1 MG/ML 10 ML VIAL ONE (07:36)
[2024-10-29] MEDS ORDERED: PROPOFOL 10 MG/ML 20 ML VIAL IV ONE (07:36)
[2024-10-29] MEDS ORDERED: MIDAZOLAM 2 MG/2 ML VIAL ONE (07:36)
--- NOTE | 2024-10-29 07:44 | P.HPIHPCON ---
History of Present Illness H&P Date: 10/29/24 Chief Complaint: Desires permanent contraception Ms. Cervantes is a 29 year old who presents for permanent contraception. Consent for Procedure: I have explained the operation/procedure to the patient, including the risks, benefits, side effects, alternative therapies (including not receiving the proposed treatment or service), the likelihood of the patient achieving his/her goals, and potential recuperation problems for the procedure/sedation/analgesia, as well as any blood products, if indicated. I also explained to the patient the risks, benefits and side effects of the alternatives, as well as the risks related to not receiving the proposed procedure, care, treatment, or services. Past Medical History Past Medical History: Asthma Additional Past Medical History / Comment(s): asthma in childhood, no medications as an adult History of Any Multi-Drug Resistant Organisms: None Reported Additional Past Surgical History / Comment(s): Oral surgery with anesthesia, tolerated well Past Anesthesia/Blood Transfusion Reactions: No Reported Reaction Smoking Status: Never smoker - Past Family History Mother Family Medical History: CVA/TIA, Diabetes Mellitus Medications and Allergies Home Medications Medication Instructions Recorded Confirmed Type Escitalopram [Lexapro] 20 mg PO DAILY 10/23/24 10/29/24 History Sertraline [Zoloft] 25 mg PO DAILY 10/23/24 10/29/24 History Allergies Allergy/AdvReac Type Severity Reaction Status Date / Time No Known Allergies Allergy Verified 10/29/24 06:28 Surgical - Exam Vital Signs Temp Pulse Resp BP Pulse Ox 97.6 F 80 16 118/57 98 10/29/24 06:42 10/29/24 06:42 10/29/24 06:42 10/29/24 06:42 10/29/24 06:42 Patient is alert and oriented, in no apparent distress. Non-labored breathing. Abdomen soft. Extremities non-edematous. Assessment and Plan Assessment: 29 year old presenting for laparoscopic bilateral salpingectomy Plan: Risks, benefits, and alternatives to laparoscopic bilateral salpingectomy are discussed with the patient including risk of bleeding, infection, damage to surrounding structures. I discussed with the patient the risks and benefits of tubal ligation v salpingectomy. I discussed the non-reversible nature of salpingectomy and the possibility of regret. She is aware she will never be able to become without IVF assistance again. She desires to proceed with surgery as discussed.
[2024-10-29] MEDS: BUPIVACAINE (PF) 0.25% 30 ML VIAL SQ ONE (08:05)
--- NOTE | 2024-10-29 08:29 | P.OP ---
Date of Procedure: 10/29/24 Preoperative Diagnosis: 1. Family Planning 2. Desire permanent contraception 3. Risk reduction Postoperative Diagnosis: Same Procedure(s) Performed: Laparoscopic Bilateral Salpingectomy Implants: None Anesthesia: [place] Surgeon: Dian Trujillo Estimated Blood Loss (ml): 10 IV fluids (ml): 400 Urine output (ml): 200 Pathology: other (bilateral fallopian tubes) Condition: stable Disposition: floor Indications for Procedure: Ms. Cervantes is a 29 year old who desires permanent contraception. Risks, benefits, and alternatives to laparoscopic bilateral salpingectomy are discussed with the patient including risk of bleeding, infection, damage to surrounding structures. I discussed with the patient the risks and benefits of tubal ligation v salpingectomy. I discussed the non-reversible nature of salpingectomy and the possibility of regret. She is aware she will never be able to become without IVF assistance again. She desires to proceed with surgery as discussed. Operative Findings: Normal uterus and ovaries. Left fallopian tube with two paratubal cysts. Normal right fallopian tube. Description of Procedure: Patient was taken to the OR with IV fluid running and pneumatic compression stockings on both legs. General anesthesia was obtained without difficulty. The patient was placed in the dorsal lithotomy position with Lex-type stirrups with knees bent at 30 degree angles. Examination under anesthesia revealed a normal-sized, anteverted uterus. The patient as prepared and draped. The bladder was emptied. A speculum was placed into the vagina. The anterior lip of the cervix was grasped with a single-toothed tenaculum. A uterine manipulator was introduced. A horizontal skin incision was made at the umbilical fold. The periumbilical skin was manually elevated. The Veress needle was introduced into the peritoneal cavity at a straight angle without difficulty. A saline drop test was performed to validate intraperitoneal placement. The pneumoperitoneum was established with CO2 gas to a pressure of 15mmHg. A 5mm trocar was inserted into the abdomen under direct laparoscopic visualization. Intraabdominal survey revealed lack of any visceral or vascular injury. The pelvic and abdominal anatomy was noted as above. Two additional laparoscopic assit ports were placed in the right and left lower quadrants. A Aisha Grasper was used to machine operator picker the fimbriated end of the right fallopian tube. The LigaSure device was used to seal and ligate the fallopian tube sequentially to the level of the uterine cornua. The fallopian tube was then transected and removed through the laparoscopic port. This process was repeated on the left side. The left fallopian tube had two paratubal cysts that required use of a specimen removal back to remove from the trochar site. This was done without difficulty. Excellent hemostasis was noted at the end of the case. The patient tolerated the procedure well. All instruments were removed from the abdomen and vagina, and all counts were correct times two. The patient was taken to the recovery room in stable condition.the recovery room in stable condition.
[2024-10-29 10:27] VITALS: BP 99/57; PULSE 63
== END 2024-10-29 11:05 | disposition home or self-care (01) ==
LOC: OR 06:07
PROVIDERS: ATTEND Obstetrics & Gynecology
DX: Z30.2 Encounter for sterilization (principal); Z79.899 Other long term (current) drug therapy
CPT/HCPCS: 58661; 81025; 88302; J2250; J0330; J1200; J1100; J2710; J2405; J2003; J3010; J1171; J1885; J2704; J0665; J1596